=== PATIENT | female | born 1970 | race Caucasian/White ===

== ENCOUNTER 2021-10-07 12:01 | Inpatient (IN) | payer OTHER ==
[~2021-10-07] VITALS: Ht 167.6 cm; Wt 88.9 kg
[~2021-10-07 12:01] MED LIST: GLUMETZA500 MG PO
[2021-10-08] MEDS ORDERED: HYOSCYAMINE0.125 MG (09:06)
[2021-10-08] MEDS ORDERED: FLONASE16 GM (09:06)
[2021-10-08] MEDS ORDERED: LORATADINE10 MG (09:06)
[2021-10-08] MEDS ORDERED: WIXELA 250-501 EACH (09:06)
[2021-10-08] MEDS ORDERED: PANTOPRAZOLE SO40 MG (09:07)
[2021-10-08] MEDS ORDERED: FAMOTIDINE20 MG (09:07)
[2021-10-08] MEDS ORDERED: GLIPIZIDE ER2.5 MG (09:07)
[2021-10-08] MEDS ORDERED: LINZESS145 MCG (09:07)
== END 2021-10-10 12:49 | disposition home or self-care (01) | DRG 743 ==
LOC: OB/GYN 10-08 06:00 → O/R 10-08 06:00 → SURH 10-08 07:00 → OB/GYN 10-08 10:17 → SURH 10-08 11:19 → OB/GYN 10-10 12:49
PROVIDERS: ADMIT Obstetrics & Gynecology; ATTEND Obstetrics & Gynecology
PROC: 0UT70ZZ Resection of Bilateral Fallopian Tubes, Open Approach (ICD-10-PCS; 2021-10-08)
PROC: 0UT20ZZ Resection of Bilateral Ovaries, Open Approach (ICD-10-PCS; 2021-10-08)
PROC: 0UB90ZZ Excision of Uterus, Open Approach (ICD-10-PCS; 2021-10-08)
PROC: 0UT90ZZ Resection of Uterus, Open Approach (ICD-10-PCS; principal; 2021-10-08 07:00)
DX: D25.2 Subserosal leiomyoma of uterus (principal); N83.01 Follicular cyst of right ovary; N83.292 Other ovarian cyst, left side; Z20.822 Contact with and (suspected) exposure to COVID-19

== ENCOUNTER → 2021-12-19 | Emergency (ER) | payer OTHER ==
[~2021-12-19] VITALS: Ht 167.6 cm; Wt 87.1 kg
[~2021-12-19] MED LIST changes: +FAMOTIDINE20 MG; +FLONASE16 GM; +GLIPIZIDE ER2.5 MG; +HYOSCYAMINE0.125 MG; +LINZESS145 MCG; +LORATADINE10 MG; +PANTOPRAZOLE SO40 MG; +WIXELA 250-501 EACH
== END | disposition home or self-care (01) ==
LOC: ER 21:34
DX: G56.01 Carpal tunnel syndrome, right upper limb (principal)